=== PATIENT | female | born 1960 | race Caucasian/White ===

== ENCOUNTER 2022-12-17 14:05 | Emergency (ER) | payer OTHER, SELFPAY ==
[2022-12-17] VITALS (38 sets, daily range): BP systolic 93–142; BP diastolic 52–90; PULSE 53–89; RESP 11–25; TEMP 36.7; O2SAT 93–99; BMI 34.3
--- NOTE | 2022-12-17 14:30 | ED_ITS ---
HPI - Chest Pain General Chief Complaint: Chest Pain Stated Complaint: CHEST PAIN Time Seen by Provider: 12/17/22 14:30 Source: patient Mode of arrival: walk-in Limitations: no limitations History of Present Illness HPI narrative: this patient's here with her complaining of chest pain. She said it was severe ten over ten pain last night from 9:30 until 2:30 AM. Now she says is just a slight aching that she says is 2/10. She also said that two days ago she had a one-hour episode of very severe pain. Last night's episode was associated with profound diaphoresis. She has a history of hypertension but no diabetes. She has not had previous cardiovascular disease or medical problems that she is aware of. She has not had any vomiting today. Does not having any tearing in her back. Related Data Home Medications Medication Instructions Recorded Confirmed albuterol sulfate 90 mcg/actuation 1 puff inhalation Q4H PRN 12/17/22 12/17/22 aerosol inhaler shortness of breath or wheezing amlodipine 5 mg tablet 5 mg PO DAILY 12/17/22 12/17/22 clonazepam 0.5 mg tablet 0.5 mg PO Q12H 12/17/22 12/17/22 fluoxetine 10 mg capsule 10 mg PO DAILY 12/17/22 12/17/22 levothyroxine 112 mcg tablet 112 mcg PO DAILY 12/17/22 12/17/22 metoprolol tartrate 50 mg tablet 50 mg PO Q12H 12/17/22 12/17/22 Allergies Allergy/AdvReac Type Severity Reaction Status Date / Time hydromorphone [From Dilaudid] Allergy Severe Verified 12/17/22 14:10 Exam Narrative Exam Narrative: patient's awake alert does not appear acutely ill. Says her pain is 2/10. Vital signs are noted and essentially normal. She is a good historian her is here with her. HEENT there is no pallor, scleral icterus or jaundice. I examination shows no conjunctivitis. Chest examination shows lungs be clear with no wheezes rales or rhonchi heart sounds are normal with occasional unifocal ectopy consistent with PVCs. Leg showed no deep vein thrombosis phlebitis or edema. Neurological examination shows no confusion no local or focal neurological findings deficits or symptoms. Constitutional Vital Signs, click to edit/add: Last Vital Signs Temp 98.1 F 12/17/22 14:06 Pulse 70 12/17/22 18:15 Resp 15 12/17/22 18:15 BP 107/68 12/17/22 18:15 Pulse Ox 95 12/17/22 17:40 O2 Del Method Room Air 12/17/22 14:06 Course Vital Signs Vital signs: Vital Signs Temperature 98.1 F 12/17/22 14:06 Pulse Rate 89 12/17/22 14:06 Respiratory Rate 18 12/17/22 14:06 Blood Pressure 138/90 12/17/22 14:06 Pulse Oximetry 95 12/17/22 14:06 Oxygen Delivery Method Room Air 12/17/22 14:06 Temperature 98.1 F 12/17/22 14:06 Pulse Rate 70 12/17/22 18:15 Respiratory Rate 15 12/17/22 18:15 Blood Pressure 107/68 12/17/22 18:15 Pulse Oximetry 95 12/17/22 17:40 Oxygen Delivery Method Room Air 12/17/22 14:06 MDM - Chest Pain MDM Narrative Medical decision making narrative: a stat EKG was done on arrival that shows deep T-wave inversion over the inferior lateral leads that was not present in the EKG in two thousand eighteen. She has no focal PVC. There is no ST segment elevation. The patient states that she did take 325 mg of aspirin this morning. I will be starting her on a nitroglycerin drip and initiating antiplatelet therapy. Cardiac enzymes will be done and IV is established Lab Data Labs: Lab Results 12/17/22 12/17/22 Range/Units 14:20 16:25 WBC 10.0 (4.0-11.0) 10^3/uL RBC 4.16 L (4.20-5.40) 10^6/uL Hgb 13.8 (12.0-16.0) g/dL Hct 39.7 (36.0-48.0) % MCV 95.4 (81.0-99.0) fL MCH 33.2 (26.7-34.0) pg MCHC 34.8 (29.9-35.2) g/dL RDW 12.0 (11.0-15.0) % Plt Count 227 (150-450) 10^3/uL MPV 10.7 (9.5-13.5) fL Neut % (Auto) 81.5 H (43.0-75.0) % Lymph % (Auto) 12.9 L (20.5-60.0) % Centre % (Auto) 4.7 (1.7-12.0) % Eos % (Auto) 0.2 L (0.9-7.0) % Baso % (Auto) 0.4 (0.2-2.0) % Neut # (Auto) 8.1 H (1.4-6.5) 10^3/uL Lymph # (Auto) 1.3 (1.2-3.8) 10^3/uL [place] # (Auto) 0.5 (0.3-0.8) 10^3/uL Eos # (Auto) 0.0 (0.0-0.7) 10^3/uL Baso # (Auto) 0.0 (0.0-0.1) 10^3/uL Abs Immat Gran (auto) 0.03 (0.00-0.03) 10^3/uL Imm/Tot Granulo (auto) 0.3 (0.0-0.5) % PT 9.8 (9.0-11.6) sec INR <0.93 APTT 27.0 (22.3-36.2) sec Sodium 134 L (136-145) mmol/L Potassium 4.3 (3.5-5.1) mmol/L Chloride 104 (98-107) mmol/L Carbon Dioxide 21.6 (21.0-32.0) mmol/L Anion Gap 12.7 BUN 10.0 (7.0-18.0) mg/dL Creatinine 0.75 (0.55-1.02) mg/dL Est GFR ( Amer) >60 (>=60) Est GFR (Non-Af Amer) >60 (>=60) BUN/Creatinine Ratio 13.3 Glucose 116 H (74-106) mg/dL Calcium 9.3 (8.5-10.1) mg/dL Total Bilirubin 0.7 (0.2-1.0) mg/dL AST 161 H (15-37) U/L ALT 35 (14-59) U/L Alkaline Phosphatase 71 (46-116) U/L Troponin I High Sens 62485.4 H* 83479.9 H* (4.0-51.3) pg/mL NT-Pro-B Natriuret Pep 1329.0 H* (<=900.0) pg/mL Total Protein 7.3 (6.4-8.2) g/dL Albumin 4.1 (3.4-5.0) g/dL Globulin 3.2 g/dL Albumin/Globulin Ratio 1.3 Discharge Plan Discharge Chief Complaint: Chest Pain Clinical Impression: Acute non-ST elevation myocardial infarction (NSTEMI) Patient Disposition: [facility] Time of Disposition Decision: 14:03 Discharge Date/Time: 12/17/22 18:49
--- NOTE | 2022-12-17 14:33 | XR_ITS ---
The [address] [address] Patient Name: REGINE KEITH MRN: [id number] date: 1960 Sex: F Assigned Patient Location: ER Current Patient Location: ER Accession/Order Number: [id number] Exam Date: 12/17/2022 14:48 Report Date: 12/17/2022 15:11 At the request of: MICHELLE GRIMES Procedure: XR chest 1V EXAMINATION: XR chest 1V HISTORY: Chest pain COMPARISON: Chest x-rays 07/31/2018 TECHNIQUE: Portable chest FINDINGS: The lung parenchyma is free of consolidation or infiltrate. Stable scarring within the right lower hemithorax. No pneumothorax or pleural effusion. The cardiac, mediastinal and hilar contours are normal. The visualized osseous structures exhibit no gross abnormality. XR/XR chest 1V IMPRESSION: No acute cardiopulmonary abnormality. Electronically authenticated by: DAMION GOMEZ Date: 12/17/2022 15:11
--- NOTE | 2022-12-17 14:33 | ECG_ITS ---
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
[2022-12-17] MEDS: CLOPIDOGREL BISULFATE 75 MG TABLET 300 MG PO (14:42)
[2022-12-17 14:43] LABS: Basophils Percent Auto 0.4 % (0.2-2.0); Eosinophils Percent Auto 0.2 % (0.9-7.0); Hematocrit 39.7 % (36.0-48.0); Hemoglobin 13.8 g/dL (12.0-16.0); Immature Granulocytes Abs Auto 0.03 10^3/uL (0.00-0.03); Immature Granulocytes Pct Auto 0.3 % (0.0-0.5); Lymphocytes Absolute Auto 1.3 10^3/uL (1.2-3.8); Lymphocytes Percent Auto 12.9 % (20.5-60.0); Mean Corpuscular HGB Conc 34.8 g/dL (29.9-35.2); Mean Corpuscular Hemoglobin 33.2 pg (26.7-34.0); Mean Corpuscular Volume 95.4 fL (81.0-99.0); Mean Platelet Volume 10.7 fL (9.5-13.5); Monocytes Absolute Auto 0.5 10^3/uL (0.3-0.8); Monocytes Percent Auto 4.7 % (1.7-12.0); Neutrophils Absolute Auto 8.1 10^3/uL (1.4-6.5); Neutrophils Percent Auto 81.5 % (43.0-75.0); Platelet Count 227 10^3/uL (150-450); Red Blood Count 4.16 10^6/uL (4.20-5.40)
[2022-12-17] MEDS: NITROGLYCERIN IN 5 % DEXTROSE 50 MG/250 ML INFUS..BTL IV (14:43)
[2022-12-17 14:55] LABS: Alanine Aminotransferase 35 U/L (14-59); Albumin Globulin Ratio 1.3; Albumin Level 4.1 g/dL (3.4-5.0); Alkaline Phosphatase 71 U/L (46-116); Anion Gap 12.7; Aspartate Amino Transferase 161 U/L (15-37); BUN Creatinine Ratio 13.3; Bilirubin Total 0.7 mg/dL (0.2-1.0); Calcium 9.3 mg/dL (8.5-10.1); Carbon Dioxide 21.6 mmol/L (21.0-32.0); Chloride 104 mmol/L (98-107); Estimated GFR (African America >60 (>=60); Estimated GFR (Non-African Ame >60 (>=60); Globulin 3.2 g/dL; Glucose 116 mg/dL (74-106); Potassium 4.3 mmol/L (3.5-5.1); Sodium 134 mmol/L (136-145); Total Protein 7.3 g/dL (6.4-8.2)
[2022-12-17] MEDS: NICOTINE 21 MG PATCH TD (15:52)
[2022-12-17] MEDS: TICAGRELOR 90 MG TABLET 180 MG PO (15:52)
[2022-12-17] MEDS: 0.9 % SODIUM CHLORIDE 300 ML 999 ML IV (15:56)
--- NOTE | 2022-12-17 16:30 | ECG_ITS ---
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
[2022-12-17 17:08] LABS: Prothrombin Time 9.8 sec (9.0-11.6)
[2022-12-17] MEDS: HEPARIN SODIUM (PORCINE) 5,000 UNIT/ML VIAL 4000 UNIT IV (17:09)
[2022-12-17] MEDS: HEPARIN SODIUM,PORCINE/D5W 25,000 UNIT/500 ML IV.SOLN 16.584 UNIT IV (17:10)
[2022-12-17 17:12] LABS: INR <0.93
--- NOTE | 2022-12-17 17:38 | ECG_ITS ---
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
[2022-12-17] MEDS: MORPHINE SULFATE 2 MG/ML SYRINGE IV (18:13)
== END 2022-12-17 18:49 | disposition short-term general hospital (02) ==
LOC: ER 14:19
PROVIDERS: Emergency Provider Emergency Medicine Emergency Medical Services; PCP Internal Medicine
DX: I21.4 Non-ST elevation (NSTEMI) myocardial infarction (principal); I10 Essential (primary) hypertension; Z79.899 Other long term (current) drug therapy; Z79.890 Hormone replacement therapy
CPT/HCPCS: 36415; 71045; 80053; 83880; 84484; 85025; 85610; 85730; 93005; 96365; 96366; 96372; 96375; 99285

== ENCOUNTER 2023-11-27 13:01 | Emergency (ER) | payer OTHER, SELFPAY ==
[2023-11-27] VITALS (24 sets, daily range): BP systolic 115–168; BP diastolic 68–107; PULSE 60–83; TEMP 36.6; O2SAT 93–98; BMI 30.4
--- NOTE | 2023-11-27 13:16 | CT_ITS ---
[address] [address] Patient Name: REGINE KEITH MRN: [id number] date: 1960 Sex: F Assigned Patient Location: ER Current Patient Location: Accession/Order Number: [id number] Exam Date: 11/27/2023 14:38 Report Date: 11/27/2023 15:00 At the request of: EVELINA SOLIS Procedure: CT angio chest EXAMINATION: CT angio chest HISTORY: Pulmonary embolism COMPARISON: No relevant comparison available. TECHNIQUE: Multi-planar CT images were created with IV contrast. Axial, Coronal, and Sagittal images. Dose reduction techniques were achieved by using automated exposure control and/or adjustment of mA and/or kV according to patient size and/or use of iterative reconstruction technique. 3-D reconstruction was performed on a separate workstation. FINDINGS: VASCULATURE: No pulmonary embolism or abnormal opacity. LUNGS: Mild groundglass opacities within the dependent lung bases, likely atelectasis. PLEURA: No mass, effusion, or pneumothorax. AMADO: A few calcified lymph nodes compatible with chronic granulomatous disease. MEDIASTINUM: No mass or adenopathy. CARDIAC: No enlargement, pericardial effusion, or pericardial thickening. AORTA: No aneurysm or dissection. CHEST WALL: No mass or axillary adenopathy. BONES: No bone lesion or fracture. LIMITED ABDOMEN: No suspicious findings. Limited images of the upper abdomen. OTHER: Negative. CT/CT angio chest IMPRESSION: 1. No pulmonary embolism. 2. Mild bibasilar atelectasis, or possibly infiltrates. 3. Otherwise no acute or specific findings to account for patient's symptoms. Electronically authenticated by: LINDA ROJAS Date: 11/27/2023 15:00
--- NOTE | 2023-11-27 13:16 | ECG_ITS ---
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
--- NOTE | 2023-11-27 13:23 | ED.GENADUL1 ---
HPI HPI - General Adult General Chief complaint: Back Pain/Injury Stated complaint: UPPER BACK PAIN Time Seen by Provider: 11/27/23 13:10 Source: patient and family Mode of arrival: walk-in Limitations: no limitations History of Present Illness HPI narrative: Patient is a 63-year-old female who presents to the emergency department for the evaluation of 3 weeks of thoracic back pain radiating between the scapula bilaterally in addition to occasional chest pain. She has had no objective fevers, cough or congestion. No hemoptysis. No leg swelling. She has no significant pain at this time. She has been seen by her primary care nurse practitioner at Dr. Bassett's office who gave her a shot of Kenalog over a week ago, she was ordered to have a chest x-ray but she states then she was already coming to the hospital she decided to forego the chest x-ray and come to the ER. She has not been short of breath. She takes Brilinta for history of non-STEMI/coronary artery disease. Related Data Home Medications ?Medication ?Instructions ?Recorded ?Confirmed albuterol sulfate 90 mcg/actuation 1 puff inhalation Q4H PRN 12/17/22 12/17/22 aerosol inhaler shortness of breath or wheezing amlodipine 5 mg tablet 5 mg PO DAILY 12/17/22 12/17/22 clonazepam 0.5 mg tablet 0.5 mg PO Q12H 12/17/22 12/17/22 fluoxetine 10 mg capsule 10 mg PO DAILY 12/17/22 12/17/22 levothyroxine 112 mcg tablet 112 mcg PO DAILY 12/17/22 12/17/22 metoprolol tartrate 50 mg tablet 50 mg PO Q12H 12/17/22 12/17/22 Previous Rx's ?Medication ?Instructions ?Recorded methocarbamol 750 mg tablet 750 mg PO TID PRN pain #20 tabs 11/27/23 methylprednisolone 4 mg tablets in See Rx Instructions .Route 11/27/23 a dose pack (Medrol (Koby)) .COMPLEX #21 ea Allergies Allergy/AdvReac Type Severity Reaction Status Date / Time hydromorphone [From Dilaudid] Allergy Severe Rash Verified 11/27/23 13:07 Opioid HPI Opioid Management Most Recent Opioid Data: Last Pain Scale 4 12/17/22 15:11 Review of Systems ROS Constitutional Denies: fever or chills Ears, nose, mouth, and throat Denies: throat pain or nasal congestion Cardiovascular Reports: chest pain Respiratory Denies: shortness of breath or cough Gastrointestinal Denies: abdominal pain, nausea or vomiting Musculoskeletal Reports: back pain; Denies: neck pain Integumentary/Breast Denies: rash Neurological Denies: headache Hematologic/Lymphatic Denies: easy bruising or easy bleeding Exam Narrative Exam Narrative: Gen.: Awake, alert, in no distress Head: Normocephalic, atraumatic ENT: Moist mucous membranes Respiratory: No respiratory distress, lungs clear bilaterally Cardio: Regular rate and rhythm Back: Diffuse minimal tenderness of the inferior thoracic spine and paraspinal muscles between the scapula, no rashes or color change appreciated Extremities: Moves extremities equally, no pedal edema Psych: Normal mood and affect Neuro: No focal neuro deficit Skin: Warm, dry, intact Constitutional Vital Signs, click to edit/add: Last Vital Signs Temp 97.9 F 11/27/23 13:07 Pulse 72 11/27/23 13:07 Resp 16 11/27/23 13:07 BP 141/68 11/27/23 13:07 Pulse Ox 96 11/27/23 13:07 O2 Del Method Room Air 11/27/23 13:07 Course Vital Signs Vital signs: Vital Signs Temperature 97.9 F 11/27/23 13:07 Pulse Rate 72 11/27/23 13:07 Respiratory Rate 16 11/27/23 13:07 Blood Pressure 141/68 11/27/23 13:07 Pulse Oximetry 96 11/27/23 13:07 Oxygen Delivery Method Room Air 11/27/23 13:07 Temperature 97.9 F 11/27/23 13:07 Pulse Rate 72 11/27/23 13:07 Respiratory Rate 16 11/27/23 13:07 Blood Pressure 141/68 11/27/23 13:07 Pulse Oximetry 96 11/27/23 13:07 Oxygen Delivery Method Room Air 11/27/23 13:07 Medical Decision Making MDM Narrative Medical decision making narrative: Laboratory studies, EKG obtained all within normal limits including troponin and no EKG changes from previous. CT angio of the chest with no evidence of PE and mild bibasilar atelectasis. Patient started on medication for pain for home, muscle relaxant and Medrol Dosepak. Follow-up with PCP and return to the ER if symptoms change or worsen. SUPERVISED APC VISIT, PHYSICIAN ATTESTATION: Based on the medical record the care appears appropriate. ? Medical Records Medical records reviewed: Yes I reviewed the patient's medical records Lab Data Lab results reviewed: Yes I reviewed the patient's lab results Labs: Lab Results 11/27/23 Range/Units 13:25 WBC 5.5 (4.0-11.0) 10^3/uL RBC 4.21 (4.20-5.40) 10^6/uL Hgb 14.1 (12.0-16.0) g/dL Hct 41.0 (36.0-48.0) % MCV 97.4 (81.0-99.0) fL MCH 33.5 (26.7-34.0) pg MCHC 34.4 (29.9-35.2) g/dL RDW 12.4 (11.0-15.0) % Plt Count 238 (150-450) 10^3/uL MPV 10.8 (9.5-13.5) fL Neut % (Auto) 57.6 (43.0-75.0) % Lymph % (Auto) 29.9 (20.5-60.0) % [place] % (Auto) 6.8 (1.7-12.0) % Eos % (Auto) 4.8 (0.9-7.0) % Baso % (Auto) 0.7 (0.2-2.0) % Neut # (Auto) 3.1 (1.4-6.5) 10^3/uL Lymph # (Auto) 1.6 (1.2-3.8) 10^3/uL [place] # (Auto) 0.4 (0.3-0.8) 10^3/uL Eos # (Auto) 0.3 (0.0-0.7) 10^3/uL Baso # (Auto) 0.0 (0.0-0.1) 10^3/uL Abs Immat Gran (auto) 0.01 (0.00-0.03) 10^3/uL Imm/Tot Granulo (auto) 0.2 (0.0-0.5) % PT 10.3 (9.0-11.6) sec INR 0.97 Sodium 138 (136-145) mmol/L Potassium 4.3 (3.5-5.1) mmol/L Chloride 105 (98-107) mmol/L Carbon Dioxide 23.5 (21.0-32.0) mmol/L Anion Gap 13.8 BUN 12.0 (7.0-18.0) mg/dL Creatinine 0.73 (0.55-1.02) mg/dL Est GFR ( Amer) >60 (>=60) Est GFR (Non-Af Amer) >60 (>=60) BUN/Creatinine Ratio 16.4 Glucose 93 (74-106) mg/dL Calcium 9.0 (8.5-10.1) mg/dL Total Bilirubin 0.9 (0.2-1.0) mg/dL AST 13 L (15-37) U/L ALT 30 (14-59) U/L Alkaline Phosphatase 70 (46-116) U/L Troponin I High Sens 4.3 (4.0-51.3) pg/mL NT-Pro-B Natriuret Pep 235.0 (<=900.0) pg/mL Total Protein 7.3 (6.4-8.2) g/dL Albumin 4.0 (3.4-5.0) g/dL Globulin 3.3 g/dL Albumin/Globulin Ratio 1.2 Lipase 55.0 (16.0-77.0) U/L Imaging Data CT scan - chest: Attestation: I have reviewed the pertinent imaging results. Radiologist's impression: ITS Impressions Chest CTA 11/27/23 13:16 IMPRESSION: 1. No pulmonary embolism. 2. Mild bibasilar atelectasis, or possibly infiltrates. 3. Otherwise no acute or specific findings to account for patient's symptoms. Electronically authenticated by: LINDA ROJAS Date: 11/27/2023 15:00 ECG Data Attestation: I personally reviewed and interpreted this ECG as follows: (Normal sinus rhythm at a rate of 71, no acute ST elevation or ectopy. T wave inversion noted in leads III and aVF that is unchanged from EKG dated 12/17/2022. EKG reviewed by attending physician) Discharge Plan Discharge Stand Alone Forms: Portal Instructions Chief Complaint: Back Pain/Injury Clinical Impression: Acute bilateral thoracic back pain Patient Disposition: Home, Self-Care Time of Disposition Decision: 15:10 Condition: Good Prescriptions / Home Meds: New methylprednisolone [Medrol (Koby)] 4 mg tablets,dose pack See Rx Instructions .ROUTE .COMPLEX Qty: 21 0RF Rx Instructions: Taper as directed methocarbamol 750 mg tablet 750 mg PO TID PRN (Reason: pain) Qty: 20 0RF No Action albuterol sulfate 90 mcg/actuation HFA aerosol inhaler 1 puff INHALATION Q4H PRN (Reason: shortness of breath or wheezing) amlodipine 5 mg tablet 5 mg PO DAILY clonazepam 0.5 mg tablet 0.5 mg PO Q12H fluoxetine 10 mg capsule 10 mg PO DAILY levothyroxine 112 mcg tablet 112 mcg PO DAILY metoprolol tartrate 50 mg tablet 50 mg PO Q12H Print Language: Icelandic Instructions: Thoracic Pain (ED) Referrals: REYNA BASSETT [Primary Care Provider] - 1 week
[2023-11-27] MEDS: METHOCARBAMOL 500 MG TABLET 1000 MG PO (13:36)
[2023-11-27] MEDS: METHYLPREDNISOLONE SOD SUCC PF 125 MG/2 ML VIAL IVP (13:36)
[2023-11-27 14:19] LABS: Basophils Percent Auto 0.7 % (0.2-2.0); Eosinophils Absolute Auto 0.3 10^3/uL (0.0-0.7); Eosinophils Percent Auto 4.8 % (0.9-7.0); Hemoglobin 14.1 g/dL (12.0-16.0); Immature Granulocytes Abs Auto 0.01 10^3/uL (0.00-0.03); Immature Granulocytes Pct Auto 0.2 % (0.0-0.5); Lymphocytes Absolute Auto 1.6 10^3/uL (1.2-3.8); Lymphocytes Percent Auto 29.9 % (20.5-60.0); Mean Corpuscular HGB Conc 34.4 g/dL (29.9-35.2); Mean Corpuscular Hemoglobin 33.5 pg (26.7-34.0); Mean Corpuscular Volume 97.4 fL (81.0-99.0); Mean Platelet Volume 10.8 fL (9.5-13.5); Monocytes Absolute Auto 0.4 10^3/uL (0.3-0.8); Monocytes Percent Auto 6.8 % (1.7-12.0); Neutrophils Absolute Auto 3.1 10^3/uL (1.4-6.5); Neutrophils Percent Auto 57.6 % (43.0-75.0); Platelet Count 238 10^3/uL (150-450); Red Blood Count 4.21 10^6/uL (4.20-5.40); Red Cell Distribution Width 12.4 % (11.0-15.0); White Blood Count 5.5 10^3/uL (4.0-11.0)
[2023-11-27 14:30] LABS: Alanine Aminotransferase 30 U/L (14-59); Albumin Globulin Ratio 1.2; Alkaline Phosphatase 70 U/L (46-116); Anion Gap 13.8; Aspartate Amino Transferase 13 U/L (15-37); BUN Creatinine Ratio 16.4; Bilirubin Total 0.9 mg/dL (0.2-1.0); Carbon Dioxide 23.5 mmol/L (21.0-32.0); Chloride 105 mmol/L (98-107); Estimated GFR (African America >60 (>=60); Estimated GFR (Non-African Ame >60 (>=60); Globulin 3.3 g/dL; Glucose 93 mg/dL (74-106); Potassium 4.3 mmol/L (3.5-5.1); Sodium 138 mmol/L (136-145); Total Protein 7.3 g/dL (6.4-8.2)
[2023-11-27 14:39] LABS: Troponin I High Sensitivity 4.3 pg/mL (4.0-51.3)
[2023-11-27 14:40] LABS: INR 0.97; Prothrombin Time 10.3 sec (9.0-11.6)
== END 2023-11-27 15:28 | disposition home or self-care (01) ==
PROVIDERS: Physician Assistant; Emergency Provider Student in an Organized Health Care Education/Training Program; PCP Internal Medicine
DX: M54.6 Pain in thoracic spine (principal); I25.10 Atherosclerotic heart disease of native coronary artery without angina pectoris; I25.2 Old myocardial infarction; Z79.899 Other long term (current) drug therapy
CPT/HCPCS: 36415; 71275; 80053; 83690; 83880; 84484; 85025; 85610; 93005; 96374; 99285; J2919; Q9967